=== PATIENT | female | born 1935 | race Two or more races ===

== ENCOUNTER 2023-02-26 01:08 | Inpatient (IN) | payer OTHER ==
[~2023-02-26] VITALS: Ht 157.5 cm; Wt 69.1 kg
[2023-02-26] VITALS (8 sets, daily range): BP systolic 88–129; BP diastolic 62–75
[2023-02-26] MEDS ORDERED: ACETAMINOPHEN 325 MG TAB PO PRN ×2 (02:45→11:15)
[2023-02-26] MEDS ORDERED: DEXTROSE (50%) 50ML SYRG IV PRN (02:45)
[2023-02-26] MEDS ORDERED: DOCUSATE SOD 100 MG CAP PO PRN (02:45)
[2023-02-26] MEDS ORDERED: ONDANSETRON HCL 4 MG/2 ML VIAL IV PRN (02:45)
[2023-02-26] MEDS ORDERED: NITROGLYCERIN 0.4 MG SL TAB SL PRN (02:45)
[2023-02-26] MEDS ORDERED: MORPHINE SULFATE INJ 2 MG/ml SYRG IV PRN (02:45)
[2023-02-26] MEDS: ACCU-CHEK COMFORT CURVE STRIP VI SCH ×3 (05:50→18:09)
[2023-02-26] MEDS: InsuLIN REG 1unit/0.01ml Soln (100units/ml) SC SCH ×3 (05:58→18:00)
[2023-02-26 07:00] LABS: Basophils # (auto) 0 10 ^3/uL (0-0.2); Basophils % (auto) 0.4 % (0.0-2.0); Eosinophils # (auto) 0 10 ^3/uL (0-0.8); Eosinophils % (auto) 0.4 % (0.0-7.0); Hematocrit 36.4 % (36.0-46.0); Hemoglobin 12.4 g/dL (12.2-16.2); Lymphocytes # (auto) 1.6 10 ^3/uL (0.4-5.4); Lymphocytes % (auto) 22.4 % (10.0-50.0); Mean Corpuscular Hgb Conc. 33.9 g/dL (32.0-36.0); Mean Corpuscular Volume 94.2 fL (80.0-100.0); Monocytes # (auto) 0.6 10 ^3/uL (0-1.3); Monocytes % (auto) 9.2 % (0.0-12.0); Neutrophils # (auto) 4.7 10 ^3/uL (1.6-8.6); Neutrophils % (auto) 67.6 % (37.0-80.0); Nucleated Red Blood Cells % 0.2 %; Red Blood Cells 3.87 10^6/uL (4.0-5.20); Red Cell Distribution Width 14.8 % (11.8-14.3)
[2023-02-26 07:26] LABS: BUN/Creatinine Ratio 15.1 (10.0-20.0); Calcium 9.8 mg/dL (8.5-10.1); Potassium 3.9 mmol/L (3.5-5.1)
[2023-02-26] MEDS ORDERED: HEPARIN SODIUM (PORCINE) 5000 UNITS/ML 1ML VIAL SC SCH (10:00)
[2023-02-26] MEDS: ASPirin 81 mg TAB PO SCH (10:00)
[2023-02-26] MEDS ORDERED: OPTISON 3ml Vial for INJ IV ONE (10:45)
[2023-02-26] MEDS: CARVEDILOL 3.125 MG TAB PO SCH ×2 (11:00→22:30)
[2023-02-26] MEDS ORDERED: GASTROGRAFIN 30 ML SOL ONE (12:18)
[2023-02-26] MEDS ORDERED: CARV12.544 PO (14:36)
[2023-02-26] MEDS ORDERED: CHOL1TAB30 PO (14:36)
[2023-02-26] MEDS ORDERED: ATOR-47 PO (14:36)
[2023-02-26] MEDS ORDERED: FERR325T20 PO (14:36)
[2023-02-26] MEDS ORDERED: APIX2.5T PO (14:36)
[2023-02-26] MEDS ORDERED: FURO40TA4 PO (14:36)
[2023-02-26] MEDS ORDERED: SITA25TA3 PO (14:36)
[2023-02-26] MEDS ORDERED: ISOS1TAB28 PO (14:36)
[2023-02-26] MEDS ORDERED: BACL10TA PO (14:36)
[2023-02-26] MEDS ORDERED: ALLO100T PO (14:36)
[2023-02-26] MEDS ORDERED: CALC0.25 PO (14:36)
[2023-02-26] MEDS ORDERED: BENZ100C97 PO (14:36)
[2023-02-26] MEDS ORDERED: GLIM-6 PO (14:36)
[2023-02-26] MEDS ORDERED: DOCU100T15 PO (14:38)
[2023-02-26] MEDS ORDERED: [UNRECOGNIZED DRUG - CODE] OT (14:38)
[2023-02-26 15:26] LABS: Magnesium 2.3 mg/dL (1.6-2.6); Phosphorus 2.7 mg/dL (2.5-4.90)
[2023-02-26] MEDS: SODIUM CHLORIDE 0.9% 1,000 ML IV SCH (15:40)
[2023-02-26] MEDS ORDERED: ENOXAPARIN SOD 100 MG/1 ML SYRINGE SC SCH (22:00)
[2023-02-26] MEDS: ATORVASTATIN 20 MG TAB PO SCH (22:29)
[2023-02-26] MEDS: ENOXAPARIN SOD 80 MG/0.8ML SYRINGE SC SCH (22:29)
[2023-02-27] MEDS: ACCU-CHEK COMFORT CURVE STRIP VI SCH ×5 (00:14→23:39)
[2023-02-27 02:36] LABS: Urine Bacteria FEW /hpf (None Seen); Urine Blood 2+ /uL (Negative); Urine Hyaline Cast FEW /lpf (0 - 2); Urine Specific Gravity 1.016 (1.001-1.035); Urine WBC 50 /hpf (0 - 5)
[2023-02-27 02:38] LABS: Creatinine, Urine 144 mg/dL (30.0-125.0); Sodium Urine 38 mmol/L (40-220)
[2023-02-27 02:39] LABS: Protein, Urine 37.2 mg/dL (0.0-11.9)
[2023-02-27] MEDS: SODIUM CHLORIDE 0.9% 1,000 ML IV SCH ×2 (04:20→10:30)
[2023-02-27 05:00] VITALS: BP 115/62
[2023-02-27] MEDS: InsuLIN REG 1unit/0.01ml Soln (100units/ml) SC SCH ×5 (05:55→23:38)
[2023-02-27 07:52] LABS: Basophils # (auto) 0 10 ^3/uL (0-0.2); Basophils % (auto) 0.6 % (0.0-2.0); Eosinophils # (auto) 0.1 10 ^3/uL (0-0.8); Hematocrit 33.3 % (36.0-46.0); Hemoglobin 11.4 g/dL (12.2-16.2); Lymphocytes # (auto) 1.5 10 ^3/uL (0.4-5.4); Lymphocytes % (auto) 26.9 % (10.0-50.0); Mean Corpuscular Hemoglobin 31.6 pg (28.0-32.0); Mean Corpuscular Hgb Conc. 34.2 g/dL (32.0-36.0); Mean Corpuscular Volume 92.6 fL (80.0-100.0); Monocytes # (auto) 0.6 10 ^3/uL (0-1.3); Monocytes % (auto) 11.6 % (0.0-12.0); Neutrophils # (auto) 3.3 10 ^3/uL (1.6-8.6); Neutrophils % (auto) 59.9 % (37.0-80.0); Red Blood Cells 3.59 10^6/uL (4.0-5.20); Red Cell Distribution Width 14.7 % (11.8-14.3); White Blood Cell 5.5 10^3/uL (4.4-10.8)
[2023-02-27 08:05] LABS: BUN/Creatinine Ratio 17.7 (10.0-20.0); Calcium 9.6 mg/dL (8.5-10.1); Potassium 4.2 mmol/L (3.5-5.1)
[2023-02-27 09:00] VITALS: BP 116/71
[2023-02-27] MEDS: CARVEDILOL 3.125 MG TAB PO SCH ×2 (10:38→21:45)
[2023-02-27] MEDS: ASPirin 81 mg TAB PO SCH (10:38)
[2023-02-27] MEDS: cefTRIAXone 1GM/50ML D5W 50 ML IV SCH (10:38)
[2023-02-27 13:00] VITALS: BP 130/78
[2023-02-27 17:00] VITALS: BP 144/81
[2023-02-27] MEDS: ENOXAPARIN SOD 80 MG/0.8ML SYRINGE SC SCH (21:39)
[2023-02-27] MEDS: ATORVASTATIN 20 MG TAB PO SCH (21:39)
[2023-02-27 22:42] VITALS: BP 124/69
[2023-02-28 05:00] VITALS: BP 107/60
[2023-02-28] MEDS: InsuLIN REG 1unit/0.01ml Soln (100units/ml) SC SCH ×5 (05:35→23:32)
[2023-02-28] MEDS: ACCU-CHEK COMFORT CURVE STRIP VI SCH ×4 (05:35→23:33)
[2023-02-28] MEDS: SODIUM CHLORIDE 0.9% 1,000 ML IV SCH ×2 (06:04→20:20)
[2023-02-28 06:49] LABS: Basophils # (auto) 0 10 ^3/uL (0-0.2); Basophils % (auto) 0.3 % (0.0-2.0); Eosinophils # (auto) 0.1 10 ^3/uL (0-0.8); Eosinophils % (auto) 2.1 % (0.0-7.0); Hematocrit 29.9 % (36.0-46.0); Hemoglobin 10.2 g/dL (12.2-16.2); Lymphocytes # (auto) 1.6 10 ^3/uL (0.4-5.4); Mean Corpuscular Hemoglobin 32.1 pg (28.0-32.0); Mean Corpuscular Hgb Conc. 34.1 g/dL (32.0-36.0); Mean Corpuscular Volume 94.1 fL (80.0-100.0); Monocytes # (auto) 0.7 10 ^3/uL (0-1.3); Monocytes % (auto) 14.2 % (0.0-12.0); Neutrophils # (auto) 2.3 10 ^3/uL (1.6-8.6); Neutrophils % (auto) 49.4 % (37.0-80.0); Nucleated Red Blood Cells % 0.2 %; Red Blood Cells 3.18 10^6/uL (4.0-5.20); Red Cell Distribution Width 14.9 % (11.8-14.3); White Blood Cell 4.6 10^3/uL (4.4-10.8)
[2023-02-28 06:58] LABS: BUN/Creatinine Ratio 19.1 (10.0-20.0); Calcium 8.3 mg/dL (8.5-10.1); Potassium 4.3 mmol/L (3.5-5.1)
[2023-02-28 08:56] VITALS: BP 97/73
[2023-02-28] MEDS: ASPirin 81 mg TAB PO SCH (10:11)
[2023-02-28] MEDS: CARVEDILOL 3.125 MG TAB PO SCH ×2 (10:12→22:04)
[2023-02-28] MEDS: cefTRIAXone 1GM/50ML D5W 50 ML IV SCH (10:13)
[2023-02-28 13:00] VITALS: BP 122/53
[2023-02-28 16:31] VITALS: BP 126/70
[2023-02-28] MEDS: Glucerna Carbsteady SHAKE Vanilla 8oz PO SCH (18:00)
[2023-02-28 22:00] VITALS: BP 125/56
[2023-02-28] MEDS: ATORVASTATIN 20 MG TAB PO SCH (22:04)
[2023-02-28] MEDS: ENOXAPARIN SOD 80 MG/0.8ML SYRINGE SC SCH (22:05)
[2023-03-01 05:00] VITALS: BP 124/73
[2023-03-01] MEDS: InsuLIN REG 1unit/0.01ml Soln (100units/ml) SC SCH ×2 (05:44→12:00)
[2023-03-01] MEDS: ACCU-CHEK COMFORT CURVE STRIP VI SCH ×2 (05:44→12:00)
[2023-03-01 06:16] LABS: Basophils # (auto) 0 10 ^3/uL (0-0.2); Basophils % (auto) 0.7 % (0.0-2.0); Eosinophils # (auto) 0.1 10 ^3/uL (0-0.8); Eosinophils % (auto) 2.4 % (0.0-7.0); Hematocrit 28.6 % (36.0-46.0); Lymphocytes # (auto) 1.8 10 ^3/uL (0.4-5.4); Lymphocytes % (auto) 38.9 % (10.0-50.0); Mean Corpuscular Hemoglobin 32.1 pg (28.0-32.0); Mean Corpuscular Hgb Conc. 34.9 g/dL (32.0-36.0); Mean Corpuscular Volume 91.9 fL (80.0-100.0); Monocytes # (auto) 0.6 10 ^3/uL (0-1.3); Monocytes % (auto) 12.3 % (0.0-12.0); Neutrophils # (auto) 2.2 10 ^3/uL (1.6-8.6); Neutrophils % (auto) 45.7 % (37.0-80.0); Nucleated Red Blood Cells % 0.1 %; Red Blood Cells 3.11 10^6/uL (4.0-5.20); Red Cell Distribution Width 14.9 % (11.8-14.3); White Blood Cell 4.7 10^3/uL (4.4-10.8)
[2023-03-01 06:31] LABS: BUN/Creatinine Ratio 19.9 (10.0-20.0); Potassium 4.2 mmol/L (3.5-5.1)
[2023-03-01 08:00] VITALS: BP 140/78
[2023-03-01] MEDS: Glucerna Carbsteady SHAKE Vanilla 8oz PO SCH ×2 (08:29→12:00)
[2023-03-01 09:00] VITALS: BP 140/78
[2023-03-01] MEDS: cefTRIAXone 1GM/50ML D5W 50 ML IV SCH (09:32)
[2023-03-01] MEDS: SODIUM CHLORIDE 0.9% 1,000 ML IV SCH ×2 (09:32→10:32)
[2023-03-01] MEDS: ASPirin 81 mg TAB PO SCH (10:34)
[2023-03-01] MEDS: CARVEDILOL 3.125 MG TAB PO SCH ×2 (10:36→16:13)
[2023-03-01 13:00] VITALS: BP 125/72
[2023-03-01 14:57] VITALS: BP 140/78
== END 2023-03-01 18:37 | disposition home or self-care (01) | DRG 280 ==
LOC: UNDOADMIN 02:05 → WEST WING 02:05 → TELE-WESTW 02:48 → WEST WING 04:51 → OBSVTOIN 02-27 12:56
PROVIDERS: ADMIT Internal Medicine; ATTEND Internal Medicine
DX: I21.4 Non-ST elevation (NSTEMI) myocardial infarction (principal); I50.23 Acute on chronic systolic (congestive) heart failure; N17.0 Acute kidney failure with tubular necrosis; I13.0 Hypertensive heart and chronic kidney disease with heart failure and stage 1 through stage 4 chronic kidney disease, or unspecified chronic kidney disease; I42.9 Cardiomyopathy, unspecified; N18.4 Chronic kidney disease, stage 4 (severe); E11.22 Type 2 diabetes mellitus with diabetic chronic kidney disease; N18.9 Chronic kidney disease, unspecified; E78.5 Hyperlipidemia, unspecified; Z20.822 Contact with and (suspected) exposure to COVID-19; D63.1 Anemia in chronic kidney disease; I25.119 Atherosclerotic heart disease of native coronary artery with unspecified angina pectoris; K22.9 Disease of esophagus, unspecified; Z86.718 Personal history of other venous thrombosis and embolism; Z95.0 Presence of cardiac pacemaker
CPT/HCPCS: 36415; 74176; 76775; 80048; 81001; 82306; 82570; 82962; 83605; 83735; 83970; 84100; 84156; 84300; 84484; 84550; 85025; 87086; 87088; 87186; 87426; 93306; 97163; J0696; J1815; Q9956

== ENCOUNTER 2023-04-27 22:22 | Inpatient (IN) | payer OTHER ==
[~2023-04-27] VITALS: Ht 160 cm; Wt 64.4 kg
[~2023-04-27 22:22] MED LIST: ALLO100T PO; APIX2.5T PO; ATOR-47 PO; BACL10TA PO; BENZ100C97 PO; CALC0.25 PO; CARV12.544 PO; CHOL1TAB30 PO; DOCU100T15 PO; FERR325T20 PO; FURO40TA4 PO; GLIM2TAB94 PO; ISOS1TAB28 PO; SITA25TA3 PO; [UNRECOGNIZED DRUG - CODE] OT
[2023-04-28 00:06] LABS: Urine Bacteria FEW /hpf (None Seen); Urine Blood Negative /uL (Negative); Urine Hyaline Cast MANY /lpf (0 - 2); Urine Mucus FEW (None Seen); Urine Specific Gravity 1.017 (1.001-1.035); Urine WBC 28 /hpf (0 - 5)
[2023-04-28 03:57] LABS: Basophils # (auto) 0 10 ^3/uL (0-0.2); Basophils % (auto) 0.3 % (0.0-2.0); Eosinophils # (auto) 0.1 10 ^3/uL (0-0.8); Eosinophils % (auto) 1.2 % (0.0-7.0); Hematocrit 37.5 % (36.0-46.0); Hemoglobin 12.4 g/dL (12.2-16.2); Lymphocytes # (auto) 2.9 10 ^3/uL (0.4-5.4); Lymphocytes % (auto) 41.4 % (10.0-50.0); Mean Corpuscular Hemoglobin 31.9 pg (28.0-32.0); Mean Corpuscular Hgb Conc. 33.1 g/dL (32.0-36.0); Mean Corpuscular Volume 96.5 fL (80.0-100.0); Monocytes # (auto) 0.9 10 ^3/uL (0-1.3); Monocytes % (auto) 12.2 % (0.0-12.0); Neutrophils # (auto) 3.2 10 ^3/uL (1.6-8.6); Neutrophils % (auto) 44.9 % (37.0-80.0); Nucleated Red Blood Cells % 0.1 %; Red Blood Cells 3.89 10^6/uL (4.0-5.20); Red Cell Distribution Width 14.4 % (11.8-14.3); White Blood Cell 7.1 10^3/uL (4.4-10.8)
[2023-04-28 04:10] LABS: INR 0.99 (0.9-1.15); Partial Thromboplastin Time 25.2 sec (24.6-33.4)
[2023-04-28 04:14] LABS: BUN/Creatinine Ratio 14.4 (10.0-20.0); Calcium 10.5 mg/dL (8.5-10.1); Magnesium 2.3 mg/dL (1.6-2.6)
[2023-04-28 04:16] LABS: Bilirubin, Total 0.6 mg/dL (0.2-1.0)
[2023-04-28] MEDS ORDERED: ENOXAPARIN SOD 60 MG/0.6 ML SYRINGE SC ONE (06:00)
[2023-04-28] MEDS ORDERED: cefTRIAXone 1GM/50ML D5W 50 ML IV ONE (06:00)
[2023-04-28] MEDS ORDERED: LACTATED RINGER'S 1,000 ML IV ONE (07:30)
[2023-04-28] MEDS ORDERED: ONDANSETRON HCL 4 MG/2 ML VIAL IV PRN (13:00)
[2023-04-28] MEDS ORDERED: MORPHINE SULFATE INJ 2 MG/ml SYRG IV PRN ×2 (14:00)
[2023-04-28] MEDS ORDERED: NITROGLYCERIN 0.4 MG SL TAB SL PRN (14:00)
[2023-04-28] MEDS ORDERED: HYDROcodone-ACET 5/325MG TAB PO PRN (14:00)
[2023-04-28] MEDS ORDERED: ACETAMINOPHEN 325 MG TAB PO PRN (14:00)
[2023-04-28] MEDS: SODIUM CHLORIDE 0.9% 1,000 ML IV SCH ×2 (14:40→22:20)
[2023-04-29] MEDS ORDERED: CARV6.2551 PO (01:16)
[2023-04-29 05:00] VITALS: BP 158/69
[2023-04-29] MEDS: SODIUM CHLORIDE 0.9% 1,000 ML IV SCH ×3 (07:29→23:20)
[2023-04-29 08:00] VITALS: BP 169/76
[2023-04-29 12:00] VITALS: BP 150/69
[2023-04-29] MEDS ORDERED: CARVEDILOL 3.125 MG TAB PO ONE (13:15)
[2023-04-29] MEDS ORDERED: ISOSORBIDE MONONITRATE ER 60 MG TAB PO ONE (13:15)
[2023-04-29 13:53] LABS: BUN/Creatinine Ratio 16.5 (10.0-20.0); Calcium 9.5 mg/dL (8.5-10.1); Potassium 4.6 mmol/L (3.5-5.1)
[2023-04-29 13:56] LABS: Bilirubin, Total 0.5 mg/dL (0.2-1.0)
[2023-04-29 16:00] VITALS: BP 135/68
[2023-04-29 22:00] VITALS: BP 112/54
[2023-04-30 05:00] VITALS: BP 125/65
[2023-04-30] MEDS: SODIUM CHLORIDE 0.9% 1,000 ML IV SCH (06:49)
[2023-04-30 08:00] VITALS: BP 160/88
[2023-04-30 08:09] LABS: Urine Bacteria FEW /hpf (None Seen); Urine Blood Negative /uL (Negative); Urine Specific Gravity 1.016 (1.001-1.035); Urine WBC 40 /hpf (0 - 5)
[2023-04-30 08:14] LABS: Alcohol, Urine < 3.0 mg/dL (0-10); Amphetamine Screen, Urine NEGATIVE (NEGATIVE); Barbiturate Scree,Urine NEGATIVE (NEGATIVE); Benzodiazephine Screen, Urine NEGATIVE (NEGATIVE); Cannabinoid Screen, Urine NEGATIVE (NEGATIVE); Cocaine Screen, Urine NEGATIVE (NEGATIVE); Opiate Scree,Urine NEGATIVE (NEGATIVE); Phencyclidine Screen, Urine NEGATIVE (NEGATIVE)
[2023-04-30] MEDS ORDERED: ISOSORBIDE MONONITRATE ER 60 MG TAB PO SCH (10:00)
[2023-04-30] MEDS ORDERED: CARVEDILOL 3.125 MG TAB PO SCH (10:00)
[2023-04-30] MEDS ORDERED: cefTRIAXone 1GM/50ML D5W 50 ML IV ONE (13:30)
[2023-04-30 16:00] VITALS: BP 170/88
[2023-04-30 16:16] VITALS: BP 103/84
[2023-04-30] MEDS ORDERED: CEPH250C PO (17:35)
[2023-05-01] MEDS ORDERED: cefTRIAXone 1GM/50ML D5W 50 ML IV SCH (09:00)
== END 2023-04-30 17:08 | disposition home health service (06) | DRG 682 ==
LOC: EEVIPCON 22:22 → ER 22:26 → TELE 04-28 13:57 → TELE-WESTW 04-28 23:15
PROVIDERS: ADMIT Internal Medicine; ATTEND Internal Medicine
DX: N17.9 Acute kidney failure, unspecified (principal); K85.90 Acute pancreatitis without necrosis or infection, unspecified; F05 Delirium due to known physiological condition; I13.0 Hypertensive heart and chronic kidney disease with heart failure and stage 1 through stage 4 chronic kidney disease, or unspecified chronic kidney disease; N39.0 Urinary tract infection, site not specified; I48.20 Chronic atrial fibrillation, unspecified; I50.22 Chronic systolic (congestive) heart failure; E83.52 Hypercalcemia; E11.22 Type 2 diabetes mellitus with diabetic chronic kidney disease; I25.10 Atherosclerotic heart disease of native coronary artery without angina pectoris; N18.32 Chronic kidney disease, stage 3b; Z20.822 Contact with and (suspected) exposure to COVID-19; D69.6 Thrombocytopenia, unspecified; E88.09 Other disorders of plasma-protein metabolism, not elsewhere classified; H93.13 Tinnitus, bilateral; Z95.0 Presence of cardiac pacemaker; Z79.01 Long term (current) use of anticoagulants
CPT/HCPCS: 36415; 70450; 71045; 74176; 80053; 80307; 80329; 81001; 82150; 83605; 83690; 83735; 84443; 84484; 85025; 85610; 85730; 87426; 93005; 93306; 96361; 96365; 96372; 97110; 97116; 97163; 99291; G0378; J0696; J2405

== ENCOUNTER 2023-06-24 06:45 | Inpatient (IN) | payer OTHER ==
[~2023-06-24] VITALS: Ht 160 cm; Wt 64.9 kg
[~2023-06-24 06:45] MED LIST changes: -CARV12.544 PO; +CARV6.2551 PO; +CEPH250C PO; +PROC10TA6 PO; +ZOFR4T PO
[2023-06-24] MEDS ORDERED: DEXTROSE (50%) 50ML SYRG IV ONE (07:15)
[2023-06-24 07:56] LABS: Basophils # (auto) 0 10 ^3/uL (0-0.2); Basophils % (auto) 0.4 % (0.0-2.0); Eosinophils # (auto) 0 10 ^3/uL (0-0.8); Eosinophils % (auto) 0.4 % (0.0-7.0); Hematocrit 38.3 % (36.0-46.0); Hemoglobin 12.5 g/dL (12.2-16.2); Lymphocytes # (auto) 0.9 10 ^3/uL (0.4-5.4); Lymphocytes % (auto) 15.7 % (10.0-50.0); Mean Corpuscular Hemoglobin 31.1 pg (28.0-32.0); Mean Corpuscular Hgb Conc. 32.7 g/dL (32.0-36.0); Mean Corpuscular Volume 95.1 fL (80.0-100.0); Monocytes # (auto) 0.7 10 ^3/uL (0-1.3); Monocytes % (auto) 12.3 % (0.0-12.0); Neutrophils # (auto) 3.9 10 ^3/uL (1.6-8.6); Neutrophils % (auto) 71.2 % (37.0-80.0); Nucleated Red Blood Cells % 0.1 %; Red Blood Cells 4.02 10^6/uL (4.0-5.20); Red Cell Distribution Width 14.4 % (11.8-14.3); White Blood Cell 5.5 10^3/uL (4.4-10.8)
[2023-06-24 07:59] VITALS: O2SAT 97
[2023-06-24 09:06] LABS: Albumin 3.4 g/dL (3.4-5.0); Anion Gap 6 (5-15); Blood Alcohol < 3.0 mg/dL (<10); Blood Urea Nitrogen 25 mg/dL (7-18); Calcium 9.5 mg/dL (8.5-10.1); Carbon Dioxide 25 mmol/L (21-32); Chloride 112 mmol/L (98-107); Magnesium 2.7 mg/dL (1.6-2.6); Potassium 3.7 mmol/L (3.5-5.1); Sodium 143 mmol/L (136-145)
[2023-06-24 09:16] LABS: Alanine Aminotransferase 20 U/L (13-56); Alkaline Phosphatase 88 U/L (45-117); Aspartate Aminotransferase 19 U/L (15-37); BUN/Creatinine Ratio 11.7 (10.0-20.0); Bilirubin, Total 0.6 mg/dL (0.2-1.0); GFR African American 28 mL/min; GFR Non-African American 23 mL/min; Total Protein 7.5 g/dL (6.4-8.2)
[2023-06-24 09:19] LABS: Glucose 46 mg/dL (74-106)
[2023-06-24 09:30] LABS: Urine Bacteria FEW /hpf (None Seen); Urine Blood Negative /uL (Negative); Urine Clarity Clear (Clear); Urine Color Yellow (Yellow); Urine Protein, UAD 1+ (Negative); Urine Specific Gravity 1.013 (1.001-1.035); Urine Urobilinogen Normal (Negative); Urine WBC <1 /hpf (0 - 5); Urine pH 5.5 (5.0-8.0)
[2023-06-24] MEDS ORDERED: DEXTROSE (50%) 50ML SYRG IV PRN (12:30)
[2023-06-24] MEDS ORDERED: NITROGLYCERIN 0.4 MG SL TAB SL PRN (12:30)
[2023-06-24] MEDS ORDERED: MORPHINE SULFATE INJ 2 MG/ml SYRG IV PRN (12:30)
[2023-06-24 13:16] LABS: Free T4 (Free Thyroxine) 1.09 ng/dL (0.89-1.76)
[2023-06-24 13:17] LABS: Folate (Folic Acid) 13.04 ng/mL (5.38-24)
[2023-06-24] MEDS ORDERED: D5W/SOD CHL 0.45% 1,000 ML IV SCH (15:30)
[2023-06-24] MEDS: ACCU-CHEK COMFORT CURVE STRIP VI SCH ×2 (17:33→21:21)
[2023-06-24 19:30] VITALS: PULSE 82; RESP 18; O2SAT 95
[2023-06-24] MEDS ORDERED: DEXTROSE 10% 1,000 ML IV ONE (20:07)
[2023-06-24] MEDS ORDERED: DEXTROSE 10% 250 ML Bag IV ONE (20:15)
[2023-06-24] MEDS: CARVEDILOL 3.125 MG TAB PO SCH (22:39)
[2023-06-24] MEDS: APIXABAN 2.5 MG TAB PO SCH (22:40)
[2023-06-25] VITALS (8 sets, daily range): BP systolic 112–158; BP diastolic 53–86; PULSE 70–78; RESP 17–18; TEMP 37.1; O2SAT 96–100
[2023-06-25] MEDS ORDERED: DEXTROSE 10% 1,000 ML IV SCH ×2 (00:30→06:45)
[2023-06-25] MEDS ORDERED: ACCU-CHEK COMFORT CURVE STRIP VI ONE ×2 (02:00→04:00)
[2023-06-25] MEDS ORDERED: DEXTROSE 10% 250 ML IV ONE (02:15)
[2023-06-25 06:13] LABS: BUN/Creatinine Ratio 15.1 (10.0-20.0); Calcium 8.8 mg/dL (8.5-10.1); Potassium 3.8 mmol/L (3.5-5.1)
[2023-06-25] MEDS: ACCU-CHEK COMFORT CURVE STRIP VI SCH ×7 (06:55→17:28)
[2023-06-25] MEDS: DEXTROSE 10% 1,000 ML IV SCH (06:55)
[2023-06-25] MEDS ORDERED: ACCU-CHEK COMFORT CURVE STRIP VI SCH (07:00)
[2023-06-25] MEDS: ISOSORBIDE MONONITRATE ER 60 MG TAB PO SCH (08:00)
[2023-06-25] MEDS: CALCITRIOL 0.25 MCG CAP PO SCH (09:35)
[2023-06-25] MEDS: CARVEDILOL 3.125 MG TAB PO SCH ×2 (09:36→21:22)
[2023-06-25] MEDS: ALLOPURINOL 100 MG TAB PO SCH (09:36)
[2023-06-25] MEDS: APIXABAN 2.5 MG TAB PO SCH ×2 (09:36→21:22)
[2023-06-25] MEDS ORDERED: FUROSEMIDE 40 MG TAB PO SCH (10:00)
[2023-06-25] MEDS ORDERED: POTASSIUM EFFERVESENT TAB 25 MEQ PO SCH (10:00)
[2023-06-25] MEDS ORDERED: ATORVASTATIN 20 MG TAB PO SCH (10:00)
[2023-06-26] VITALS (8 sets, daily range): BP systolic 125–129; BP diastolic 59–77; PULSE 69–76; RESP 14–17; TEMP 36.9; O2SAT 95–100
[2023-06-26] MEDS: ACCU-CHEK COMFORT CURVE STRIP VI SCH ×6 (00:15→23:44)
[2023-06-26] MEDS: DEXTROSE 10% 1,000 ML IV SCH (02:55)
[2023-06-26 06:11] LABS: Calcium 8.9 mg/dL (8.5-10.1); Potassium 4.2 mmol/L (3.5-5.1)
[2023-06-26 06:13] LABS: BUN/Creatinine Ratio 16.4 (10.0-20.0)
[2023-06-26] MEDS: ISOSORBIDE MONONITRATE ER 60 MG TAB PO SCH (06:23)
[2023-06-26] MEDS: CALCITRIOL 0.25 MCG CAP PO SCH (09:10)
[2023-06-26] MEDS: ALLOPURINOL 100 MG TAB PO SCH (09:11)
[2023-06-26] MEDS: APIXABAN 2.5 MG TAB PO SCH ×2 (09:11→21:26)
[2023-06-26] MEDS: CARVEDILOL 3.125 MG TAB PO SCH ×2 (09:11→21:27)
[2023-06-27] VITALS (8 sets, daily range): BP systolic 124–153; BP diastolic 68–82; PULSE 69–91; RESP 14–16; TEMP 97.5–98.6; O2SAT 95–99
[2023-06-27] MEDS: ACCU-CHEK COMFORT CURVE STRIP VI SCH ×6 (03:08→17:44)
[2023-06-27] MEDS: ISOSORBIDE MONONITRATE ER 60 MG TAB PO SCH (06:15)
[2023-06-27] MEDS: DEXTROSE 10% 1,000 ML IV SCH (06:43)
[2023-06-27 07:36] LABS: BUN/Creatinine Ratio 15.6 (10.0-20.0); Calcium 9.2 mg/dL (8.5-10.1); Potassium 4.3 mmol/L (3.5-5.1)
[2023-06-27] MEDS: APIXABAN 2.5 MG TAB PO SCH ×2 (08:45→21:42)
[2023-06-27] MEDS: CALCITRIOL 0.25 MCG CAP PO SCH (08:45)
[2023-06-27] MEDS: ALLOPURINOL 100 MG TAB PO SCH (08:45)
[2023-06-27] MEDS: CARVEDILOL 3.125 MG TAB PO SCH ×2 (08:45→21:42)
[2023-06-27] MEDS ORDERED: DEXTROSE 10% 1,000 ML IV SCH (11:15)
[2023-06-28] MEDS: ACCU-CHEK COMFORT CURVE STRIP VI SCH ×6 (00:21→16:00)
[2023-06-28 05:00] VITALS: BP 143/68; PULSE 67; RESP 16; TEMP 97.9; O2SAT 100
[2023-06-28 05:32] LABS: Calcium 9.4 mg/dL (8.5-10.1); Potassium 4.5 mmol/L (3.5-5.1)
[2023-06-28 05:35] LABS: BUN/Creatinine Ratio 16.3 (10.0-20.0)
[2023-06-28] MEDS: ISOSORBIDE MONONITRATE ER 60 MG TAB PO SCH (06:27)
[2023-06-28 08:00] VITALS: PULSE 70
[2023-06-28 08:32] VITALS: BP 131/79; PULSE 67; RESP 19; TEMP 97.8; O2SAT 96
[2023-06-28] MEDS: ALLOPURINOL 100 MG TAB PO SCH (09:17)
[2023-06-28] MEDS: CARVEDILOL 3.125 MG TAB PO SCH (09:17)
[2023-06-28] MEDS: APIXABAN 2.5 MG TAB PO SCH (09:17)
[2023-06-28] MEDS: CALCITRIOL 0.25 MCG CAP PO SCH (09:17)
[2023-06-28 13:00] VITALS: BP 105/60; PULSE 69; RESP 20; TEMP 98; O2SAT 98
[2023-06-28] MEDS ORDERED: LANC-347 XX (14:22)
[2023-06-28] MEDS ORDERED: BLOO1KIT60 XX (14:22)
[2023-06-28 15:04] VITALS: BP 105/60; PULSE 69; TEMP 98
== END 2023-06-28 16:43 | disposition home or self-care (01) | DRG 682 ==
LOC: ER 06:45 → TELE 12:26 → TELE-CENTR 06-25 05:47
PROVIDERS: ADMIT Hospitalist; ATTEND Hospitalist
DX: N17.0 Acute kidney failure with tubular necrosis (principal); G93.41 Metabolic encephalopathy; G45.9 Transient cerebral ischemic attack, unspecified; I48.20 Chronic atrial fibrillation, unspecified; I13.0 Hypertensive heart and chronic kidney disease with heart failure and stage 1 through stage 4 chronic kidney disease, or unspecified chronic kidney disease; E11.649 Type 2 diabetes mellitus with hypoglycemia without coma; E11.22 Type 2 diabetes mellitus with diabetic chronic kidney disease; N18.32 Chronic kidney disease, stage 3b; I25.10 Atherosclerotic heart disease of native coronary artery without angina pectoris; I50.9 Heart failure, unspecified; Z88.0 Allergy status to penicillin; Z95.0 Presence of cardiac pacemaker; T38.3X5A Adverse effect of insulin and oral hypoglycemic [antidiabetic] drugs, initial encounter; Y92.89 Other specified places as the place of occurrence of the external cause
CPT/HCPCS: 36415; 70450; 71045; 80048; 80053; 80320; 81001; 82607; 82746; 82962; 83036; 83735; 84439; 84443; 84484; 85025; 87081; 93005; 97110; 97116; 97163; 97530; G0378

== ENCOUNTER 2023-07-29 12:32 | Emergency (ER) | payer OTHER ==
[~2023-07-29] VITALS: Ht 165.1 cm; Wt 61.6 kg
[~2023-07-29 12:32] MED LIST changes: -BACL10TA PO; +BLOO1KIT60 XX; -CEPH250C PO; -FURO40TA4 PO; -GLIM2TAB94 PO; +LANC-347 XX; -PROC10TA6 PO
[2023-07-29 13:45] VITALS: PULSE 76; RESP 16; O2SAT 100
[2023-07-29 14:34] LABS: Basophils # (auto) 0 10 ^3/uL (0-0.2); Basophils % (auto) 0.3 % (0.0-2.0); Eosinophils # (auto) 0.1 10 ^3/uL (0-0.8); Eosinophils % (auto) 0.9 % (0.0-7.0); Hematocrit 30.4 % (36.0-46.0); Hemoglobin 10.2 g/dL (12.2-16.2); Lymphocytes % (auto) 34.6 % (10.0-50.0); Mean Corpuscular Hemoglobin 31.7 pg (28.0-32.0); Mean Corpuscular Hgb Conc. 33.5 g/dL (32.0-36.0); Mean Corpuscular Volume 94.5 fL (80.0-100.0); Monocytes # (auto) 0.7 10 ^3/uL (0-1.3); Monocytes % (auto) 12.6 % (0.0-12.0); Neutrophils # (auto) 3.1 10 ^3/uL (1.6-8.6); Neutrophils % (auto) 51.6 % (37.0-80.0); Nucleated Red Blood Cells % 0.1 %; Red Blood Cells 3.21 10^6/uL (4.0-5.20); Red Cell Distribution Width 15.1 % (11.8-14.3); White Blood Cell 5.9 10^3/uL (4.4-10.8)
[2023-07-29 14:35] LABS: Urine Bacteria NONE SEEN /hpf (None Seen); Urine Blood Negative /uL (Negative); Urine Clarity HAZY (Clear); Urine Color Yellow (Yellow); Urine Mucus FEW (None Seen); Urine Protein, UAD TRACE (Negative); Urine Specific Gravity 1.019 (1.001-1.035); Urine Urobilinogen Normal (Negative); Urine WBC 9 /hpf (0 - 5)
[2023-07-29 14:53] LABS: Alanine Aminotransferase 14 U/L (7-40); Albumin 3.8 g/dL (3.2-4.8); Alkaline Phosphatase 93 U/L (46-116); Anion Gap 7 (5-15); Aspartate Aminotransferase 12 U/L (13-40); Blood Urea Nitrogen 20 mg/dL (9-23); Calcium 9.8 mg/dL (8.7-10.4); Carbon Dioxide 26 mmol/L (20-30); Chloride 109 mmol/L (98-107); Glucose 126 mg/dL (74-106); Potassium 4.5 mmol/L (3.5-5.1); Sodium 142 mmol/L (136-145)
[2023-07-29 14:54] LABS: Bilirubin, Total 0.5 mg/dL (0.2-1.0); Total Protein 6.6 g/dL (5.7-8.2)
[2023-07-29 15:30] LABS: COVID19 ANTIGEN SOFIA FIA NEGATIVE (NEGATIVE)
[2023-07-29] MEDS ORDERED: cefTRIAXone 1GM/50ML D5W 50 ML IV ONE (15:30)
[2023-07-29 16:00] LABS: INR 1.03 (0.9-1.15); Prothrombin Time 10.8 sec (9.3-11.8)
[2023-07-29] MEDS ORDERED: NITR-87 PO (16:31)
[2023-07-29 16:39] VITALS: BP 140/68; PULSE 71; RESP 12; O2SAT 99
== END 2023-07-29 17:22 | disposition home or self-care (01) ==
LOC: ER 12:32
DX: N39.0 Urinary tract infection, site not specified (principal); R53.1 Weakness; R07.89 Other chest pain; R51.9 Headache, unspecified; I13.0 Hypertensive heart and chronic kidney disease with heart failure and stage 1 through stage 4 chronic kidney disease, or unspecified chronic kidney disease; E11.22 Type 2 diabetes mellitus with diabetic chronic kidney disease; N18.9 Chronic kidney disease, unspecified; I50.9 Heart failure, unspecified; I48.91 Unspecified atrial fibrillation; I25.2 Old myocardial infarction; Z86.73 Personal history of transient ischemic attack (TIA), and cerebral infarction without residual deficits; Z95.0 Presence of cardiac pacemaker; Z79.899 Other long term (current) drug therapy; Z88.0 Allergy status to penicillin; Z20.822 Contact with and (suspected) exposure to COVID-19
CPT/HCPCS: 36415; 70450; 71045; 80053; 81001; 82962; 83880; 84484; 85025; 85610; 85730; 87426; 93005; 96365; 99285; J0696

== ENCOUNTER 2024-05-06 09:52 | Inpatient (IN) | payer OTHER ==
[~2024-05-06] VITALS: Ht 154.9 cm; Wt 56.0 kg
[~2024-05-06 09:52] MED LIST changes: +NITR-87 PO
[2024-05-06 10:32] LABS: Basophils # (auto) 0 10 ^3/uL (0-0.2); Basophils % (auto) 0.6 % (0.0-2.0); Eosinophils # (auto) 0 10 ^3/uL (0-0.8); Eosinophils % (auto) 0.8 % (0.0-7.0); Hematocrit 35.8 % (36.0-46.0); Lymphocytes # (auto) 1.2 10 ^3/uL (0.4-5.4); Mean Corpuscular Hemoglobin 32.3 pg (28.0-32.0); Mean Corpuscular Hgb Conc. 33.4 g/dL (32.0-36.0); Mean Corpuscular Volume 96.6 fL (80.0-100.0); Monocytes # (auto) 0.4 10 ^3/uL (0-1.3); Monocytes % (auto) 10.4 % (0.0-12.0); Neutrophils # (auto) 2.3 10 ^3/uL (1.6-8.6); Neutrophils % (auto) 58.2 % (37.0-80.0); Red Blood Cells 3.71 10^6/uL (4.0-5.20); Red Cell Distribution Width 14.6 % (11.8-14.3); White Blood Cell 3.9 10^3/uL (4.4-10.8)
[2024-05-06 10:35] LABS: Urine Bacteria None Seen /hpf (None Seen); Urine WBC None Seen /hpf (0 - 5)
[2024-05-06 10:51] LABS: Alanine Aminotransferase 19 U/L (7-40); Alkaline Phosphatase 75 U/L (46-116); Calcium 10.2 mg/dL (8.5-10.1); Chloride 110 mmol/L (98-107)
[2024-05-06 10:52] LABS: Albumin 4.1 g/dL (3.2-4.8); Anion Gap 9 (5-15); Aspartate Aminotransferase 19 U/L (13-40); BUN/Creatinine Ratio 7.7 (10.0-20.0); Bilirubin, Total 0.8 mg/dL (0.2-1.0); Blood Urea Nitrogen 26 mg/dL (9-23); Carbon Dioxide 24 mmol/L (20-30); Glucose 102 mg/dL (74-106); Potassium 4.3 mmol/L (3.5-5.1); Sodium 143 mmol/L (136-145); Total Protein 7.2 g/dL (5.7-8.2)
[2024-05-06 10:58] LABS: Urine Blood Negative /uL (Negative); Urine Clarity Clear (Clear); Urine Color Light-Yellow (Yellow); Urine Protein, UAD TRACE (Negative); Urine Specific Gravity 1.011 (1.001-1.035); Urine Urobilinogen Normal (Negative)
[2024-05-06] MEDS: D5W 5% 1,000 ML IV ONE ×2 (11:14→15:34)
[2024-05-06 14:31] LABS: Amphetamine Screen, Urine Neg (NEGATIVE)
[2024-05-06 14:32] LABS: Barbiturate Scree,Urine Neg (NEGATIVE); Benzodiazephine Screen, Urine Neg (NEGATIVE); Cannabinoid Screen, Urine Neg (NEGATIVE); Cocaine Screen, Urine Neg (NEGATIVE); Opiate Scree,Urine Neg (NEGATIVE); Phencyclidine Screen, Urine Neg (NEGATIVE)
[2024-05-06] MEDS ORDERED: DOCUSATE SOD 100 MG CAP PO PRN (15:30)
[2024-05-06] MEDS ORDERED: HYDROcodone-ACET 5/325MG TAB PO PRN (15:30)
[2024-05-06] MEDS ORDERED: NITROGLYCERIN 0.4 MG SL TAB SL PRN (15:30)
[2024-05-06] MEDS ORDERED: ONDANSETRON HCL 4 MG/2 ML VIAL IV PRN (15:30)
[2024-05-06] MEDS ORDERED: ACETAMINOPHEN 325 MG TAB PO PRN (15:30)
[2024-05-06] MEDS ORDERED: DEXTROSE (50%) 50ML SYRG IV PRN (15:30)
[2024-05-06] MEDS ORDERED: MORPHINE SULFATE INJ 2 MG/ml SYRG IV PRN ×2 (15:30)
[2024-05-06] MEDS ORDERED: Benzonatate 100 MG CAPSULE PO PRN (15:30)
[2024-05-06 16:40] VITALS: BP_SYST 127; BP_SYST 129; BP_DIAS 49; PULSE 70; RESP 16; RESP 18; TEMP 98.6; O2SAT 100
[2024-05-06] MEDS: InsuLIN REG 1unit/0.01ml Soln (100units/ml) SC SCH (17:00)
[2024-05-06] MEDS: ACCU-CHEK COMFORT CURVE STRIP VI SCH (18:18)
[2024-05-06 20:00] VITALS: PULSE 73; PULSE 77
[2024-05-06 21:00] VITALS: BP 115/58; PULSE 76; RESP 18; TEMP 98.8; O2SAT 99
[2024-05-06] MEDS: ATORVASTATIN 20 MG TAB PO SCH (21:59)
[2024-05-06] MEDS: FERROUS SULFATE 325mg EC TAB PO SCH (22:00)
[2024-05-06] MEDS: APIXABAN 2.5 MG TAB PO SCH (22:00)
[2024-05-07 01:00] VITALS: BP 139/61; PULSE 71; RESP 18; TEMP 98.8; O2SAT 98
[2024-05-07 05:00] VITALS: BP 140/65; PULSE 70; RESP 17; TEMP 98.3; O2SAT 97
[2024-05-07] MEDS: ISOSORBIDE MONONITRATE 30 MG PO SCH (06:14)
[2024-05-07 08:00] VITALS: PULSE 71
[2024-05-07 09:00] VITALS: BP 120/46; PULSE 58; RESP 20; TEMP 98.6; O2SAT 98
[2024-05-07] MEDS: CHOLECALCIFEROL (VITD3) 1,000UNIT=25mCg TAB PO SCH (09:01)
[2024-05-07] MEDS ORDERED: CARVEDILOL 3.125 MG TAB PO SCH (10:00)
[2024-05-07 13:00] VITALS: BP 116/51; PULSE 65; RESP 20; TEMP 98.2; O2SAT 94
[2024-05-07 14:40] VITALS: TEMP 36.8
== END 2024-05-07 15:30 | disposition home health service (06) | DRG 637 ==
LOC: EDBD 09:52 → ER 09:52 → TELE 15:23 → TELE-CENTR 16:57 → CENTRAL 05-07 14:23
PROVIDERS: ADMIT Internal Medicine; ATTEND Internal Medicine
DX: E11.649 Type 2 diabetes mellitus with hypoglycemia without coma (principal); G93.41 Metabolic encephalopathy; I13.0 Hypertensive heart and chronic kidney disease with heart failure and stage 1 through stage 4 chronic kidney disease, or unspecified chronic kidney disease; I42.9 Cardiomyopathy, unspecified; I48.20 Chronic atrial fibrillation, unspecified; I50.22 Chronic systolic (congestive) heart failure; K86.1 Other chronic pancreatitis; E78.5 Hyperlipidemia, unspecified; I25.10 Atherosclerotic heart disease of native coronary artery without angina pectoris; E11.22 Type 2 diabetes mellitus with diabetic chronic kidney disease; N18.9 Chronic kidney disease, unspecified; Z88.0 Allergy status to penicillin; I25.2 Old myocardial infarction; Z86.73 Personal history of transient ischemic attack (TIA), and cerebral infarction without residual deficits; Z95.0 Presence of cardiac pacemaker; Z98.61 Coronary angioplasty status; Z79.4 Long term (current) use of insulin
CPT/HCPCS: 36415; 70450; 72131; 74176; 80053; 80307; 80320; 81001; 82962; 84484; 85025; 93005; 93306; 97110; 97116; 97163; 97530; G0378; J1815